=== PATIENT | female | born 1980 | race Two or more races ===

== ENCOUNTER 2019-07-20 03:05 | Emergency (ER) | payer OTHER ==
[~2019-07-20] VITALS: Ht 149.9 cm; Wt 77.3 kg
[2019-07-20 03:19] VITALS: BP 143/90
[2019-07-20] MEDS ORDERED: ASPI-728 PO (04:45)
[2019-07-20] MEDS ORDERED: PRAZ2 PO (04:45)
[2019-07-20] MEDS ORDERED: IBUP-2071 PO (04:45)
[2019-07-20] MEDS ORDERED: LIDOCAINE 1% 10 ML VIAL INJ ONE (05:00)
[2019-07-20] MEDS ORDERED: AMOXICILLIN TRIHYDRATE 250 MG CAPSULE PO ONE (05:45)
== END 2019-07-20 06:14 | disposition home or self-care (01) ==
LOC: EMS 03:05
DX: S01.511A Laceration without foreign body of lip, initial encounter (principal); Z88.8 Allergy status to other drugs, medicaments and biological substances; Z79.82 Long term (current) use of aspirin; W50.0XXA Accidental hit or strike by another person, initial encounter; Y93.89 Activity, other specified; Y92.89 Other specified places as the place of occurrence of the external cause; Y99.8 Other external cause status
CPT/HCPCS: 12011; 99283; J3490